=== PATIENT | female | born 1955 | race Caucasian/White ===

== ENCOUNTER 2023-10-12 06:48 | Day surgery (SDC) | payer SELFPAY ==
[2023-10-12] VITALS (14 sets, daily range): BP systolic 20–152; BP diastolic 50–78; BMI 22.3
[2023-10-12 06:43] LABS: Glucose - Point of Care 93 mg/dl (70-99)
[2023-10-12] MEDS: TYLENOL 1000 MG PO (06:44)
[2023-10-12] MEDS: NORMOSOL-R 1000 IV (06:44)
[2023-10-12] MEDS: HUMATE-P (FACTOR VIII/VON WILLEBRAND) 15 UNIT IV (07:13)
[2023-10-12 09:12] LABS: Glucose - Point of Care 147 mg/dl (70-99)
[2023-10-12 11:02] LABS: Glucose - Point of Care 116 mg/dl (70-99)
[2023-10-12 12:53] LABS: Glucose - Point of Care 141 mg/dl (70-99)
[2023-10-12 15:46] LABS: Glucose - Point of Care 181 mg/dl (70-99)
== END 2023-10-12 18:28 | disposition home or self-care (01) ==
LOC: COSMETIC 06:48
PROVIDERS: ATTENDING PHYSICIAN Otolaryngology
DX: Z41.1 Encounter for cosmetic surgery (principal); L98.8 Other specified disorders of the skin and subcutaneous tissue; D66 Hereditary factor VIII deficiency
CPT/HCPCS: 15828; 15769; 15789; 82962; C1729; J7183

== ENCOUNTER 2024-07-14 20:50 | Emergency (ER) | payer MEDICARE, OTHER, SELFPAY ==
[2024-07-14 20:51] VITALS: BP 119/66
--- NOTE | 2024-07-14 21:28 | ED.MUSCINJ ---
HPI-Injury
General
Chief Complaint: Musculo-Skeletal Complaint
Source: patient
Exam Limitations: none
Time Seen by Provider: 07/14/24 21:16
History of Present Illness-Injury
Is this injury a work related problem?: No
Is pt an associate of [facility]?: No
Initial Injury comments:
This is a 69 year old female that comes in with c/o left knee pain. States that 3 weeks ago she was getting back on a catamaran and the under current pushed her into the ladder. States that this injured the left knee. Then today she was on a step
and the knee buckled and she fell down onto the knee cap. States that she did not hit her head or have any LOC. Denies any fever, chills, abd pain, nausea, vomiting, diarrhea, headache, dizziness.
Past History
Past History
ED Past Medical History: Cancer (Breast cancer left), GERD, NIDDM, Psychiatric (Anxiety), Other (Cellulituis, Hemophilia) and Other; Negative CAD
ED Past Surgical History: Cholecystectomy, , Gynecological (D&E X 3), Orthopedic (Left knee, Left shoulder surgery, ) and Other (Left mastectomy with reconstruction and flap, face lift)
Social History
Tobacco: Non-smoker
Alcohol: Occasional
Drug: None
Personal:
Living: with family
Employment: Employed
Family History
Family History: CAD; Negative Sudden
Review of Systems
Review of Systems
All Other Systems: ROS reviewed and negative except as documented in HPI and ROS
Constitutional: Reports no symptoms; Denies fever or chills
EENT: Reports no symptoms
Respiratory: Reports no symptoms; Denies cough or trouble breathing
Cardiac: Reports no symptoms
ABD/GI: Reports no symptoms; Denies abdominal pain, nausea, vomiting or diarrhea
: Reports no symptoms
Musculoskeletal: Reports joint pain (Left knee pain)
Skin: Reports no symptoms
Neurological: Reports no symptoms; Denies dizzy or headache
Psychiatric: Reports no symptoms
Musculoskeletal Injury Exam
Musculoskeletal Injury Exam
Left Proximal Knee:
Pain with Movement?: Mild
Tender to palpation?: Mild
Soft tissue swelling?: None
External deformity and angulation?: None
Joint effusion?: None
Contusion?: None
Hematoma-local bleeding into tissue?: None
Strain- Sprain- Tear (Connective tissue injury)?: None
Crepitus with movement?: No
Joint instability?: No
Malalignment/deformity?: No
Range of motion: Limited (due to pain)
Distal skin color and temperature: normal-warm & good color
Capillary Refill: normal
Normal distal neurovascular exam?: Yes
Phy Exam
General Physical Exam
General Presentation: well appearing and no apparent distress
General age: appears stated age
General Skin: warm and dry
General Habitus: normal
General Mental: alert
General Hydration: appears well hydrated
Eye Exam
Eye Exam: EOMI
Musculoskeletal Exam
Musculoskeletal Exam: no edema and other (Tenderness with palpation proximal left knee. Discomfort with flexion and extension)
Skin Exam
Skin Exam: normal color, warm/dry, no petechia and other (small abrasion noted on the left distal lateral knee, negative for any redness)
Psychiatric Exam
Psychiatric Exam: normal mood/affect
Injury Course
Orders/Labs/Results
Orders:
Orders
07/14/24 20:54
CR Knee - Left 4 Or More View* Urgent
Comment:
Reason For Exam: injury, pain
07/14/24 21:44
Acetaminophen [Tylenol] 1,000 mg PO NOW STA
MDM/Problems Addressed
Differential Diagnosis Includes:
Left knee fracture
MDM/Problems Addressed:
This 8is a 69 year old female that comes in with c/o left knee pain. States that three weeks ago she hit the knee and then today her knee just gave out and she went down on the knee cap.
Explained to patient that the X-ray is negative for any fractures. Patient to follow up with Orthopedics. Will give patient a Knee immobilizer. Patient can use ice and Tylenol 1000mg every 6 hours for pain. Return with any concerns
Chronic conditions affecting care:
Hemophilia
Chronic conditions affecting care: DM
Acute Exacerbation and/or Progression of Chronic Illness:
NA
*Radiology
Radiology exam reviewed: preliminary read by ED provider (left knee negative for fractures) and radiology read reviewed (Left knee-Overall moderate tricompartmental osteoarthritis. )
*Critical Care Note
Total Time (30-74mins, 75-104mins- exclusive of procedures): Not Applicable
ED Attending Note
-
Portions of this chart may have been created with voice recognition software.� Occasional wrong word or��sound alike� substitutions may have occurred due to the inherent limitations of voice recognition software.
Discharge Plan
Departure
Patient Disposition: Home (Routine Discharge)
Date of Disposition: 07/14/24
Time of Disposition: 21:37
Patient with high blood pressure during this ER visit?: No
Condition: Good
Covid-19: Not Applicable
Discharge Problem:
Knee pain, left
Instructions: Knee Immobilizer (DC), Knee Pain (DC)
Prescriptions:
No Action
anastrozole 1 MG tablet
1 mg PO DAILY
multivitamin Tablet
1 tab PO DAILY
atorvastatin 20 mg Tablet
20 mg PO DAILY
spironolactone 100 mg Tablet
100 mg PO DAILY
escitalopram oxalate [Lexapro] 10 mg Tablet
10 mg PO DAILY
cholecalciferol (vitamin D3) [Vitamin D3] 25 mcg (1,000 unit) Tablet
25 mcg PO DAILY
Ozempic 0.25 mg or 0.5 mg (2 mg/3 mL) Pen Injector
0.5 mg SC DUKES
Activity Restrictions/Additional Instructions:
As discussed, your x-ray is negative for any fractures. You have been given a Knee immobilizer to use when you are up moving around. Please remove this to sleep and rest on a pillow. Ice to the knee to help decreased pain,. You may also use Tylenol
1000mg every 6 hours for pain. Follow up with the seo specialist for further evaluation. IF YOU HAVE INCREASED OR CHANGING PAIN, OR YOU HAVE ANY OTHER CONCERNS PLEASE RETURN TO THE EMERGENCY ROOM .
Interventions
Interventions:
*Risk Screen - Suicide Last Done: 07/14/24 20:51
*General Assessment Last Done: 07/14/24 20:51
*Neglect/Abuse Screening Last Done: 07/14/24 21:56
*ED COVID-19 Vaccine History Last Done: 07/14/24 20:51
*Nursing Disposition Last Done: 07/14/24 21:56
ED-Musculoskeletal Assessment Last Done: 07/14/24 21:54
Discharge Date and Time
Discharge Date/Time: 07/14/24 21:56
Print Language: [id number]
[2024-07-14] MEDS: TYLENOL 1000 MG PO (21:51)
[2024-07-14 21:56] VITALS: BP 117/60
== END 2024-07-14 21:56 | disposition home or self-care (01) ==
LOC: EMR 20:50
PROVIDERS: EMERGENCY PHYSICIAN Emergency Medicine; FAMILY PHYSICIAN Family Medicine
DX: M25.562 Pain in left knee (principal); K21.9 Gastro-esophageal reflux disease without esophagitis; E11.9 Type 2 diabetes mellitus without complications; F41.9 Anxiety disorder, unspecified; D66 Hereditary factor VIII deficiency; Z82.49 Family history of ischemic heart disease and other diseases of the circulatory system; Z85.3 Personal history of malignant neoplasm of breast; Z90.12 Acquired absence of left breast and nipple; Z90.49 Acquired absence of other specified parts of digestive tract
CPT/HCPCS: 99283; 73564